=== PATIENT | female | born 1970 | race American Indian/Alaskan Native ===

== ENCOUNTER 2024-03-17 14:30 | Outpatient (CLI) | payer OTHER | END 2024-03-17 14:31 | disposition home or self-care (01) | LOC: BICMRI 14:30 | PROVIDERS: ATTEND Obstetrics & Gynecology | DX: Z12.39 Encounter for other screening for malignant neoplasm of breast (principal); Z80.3 Family history of malignant neoplasm of breast | CPT/HCPCS: A9577; C8908 ==